=== PATIENT | female | born 1995 | race Caucasian/White ===

== ENCOUNTER 2019-11-22 09:15 | Inpatient (IN) | payer OTHER ==
[2019-11-22 10:35] VITALS: BMI 28.0
[2019-11-22] MEDS ORDERED: AMPICILLIN SODIUM 2 GM VIAL ONE (10:43)
[2019-11-22] MEDS ORDERED: OXYTOCIN 30 UNITS in 0.9% NS 30 UNIT/500 ML INFUS.BAG IVPB ONE (10:44)
[2019-11-22 10:53] LABS: BASO % 0.5 % (0-2.0); EOS % 0.8 % (0-4.5); HEMATOCRIT 39.2 % (32.4-45.2); HEMOGLOBIN 13.6 GM/dL (10.7-15.3); LYMPH % 21.1 % (8-40); MCH 32.4 pg (25.7-33.7); MCHC 34.6 g/dl (32.0-36.0); MEAN CELL VOLUME 93.8 fl (80-96); MEAN PLT VOLUME 9.1 fl (7.5-11.1); NEUT % 68.6 % (42.8-82.8); PLATELET COUNT 188 K/MM3 (134-434); RBC 4.18 M/mm3 (3.60-5.2); RDW 14.3 % (11.6-15.6); WHITE BLOOD COUNT 8.3 K/mm3 (4.0-10.0)
[2019-11-22 11:00] LABS: INR 0.97 (0.83-1.09); PROTHROMBIN TIME (PATIENT) 11.4 SEC (9.7-13.0)
[2019-11-22 11:03] LABS: ACTIVATED PTT 27.2 SECONDS (25.2-36.5)
[2019-11-22 11:18] LABS: BLOOD UREA NITROGEN 9.4 mg/dL (7-18); CALCIUM 9.4 mg/dL (8.5-10.1); CREATININE 0.4 mg/dL (0.55-1.3); POTASSIUM 3.9 mmol/L (3.5-5.1)
[2019-11-22] MEDS: ELECTROLYTE-148 SOLN 1,000 ML IV SCH (12:00)
[2019-11-22] MEDS ORDERED: AMPICILLIN - 2 GM in SODIUM CHLORIDE 100 ML IVPB ONE (12:00)
--- NOTE | 2019-11-22 12:55 | HP ---
Past Medical History - Primary Care Physician PCP:: Levon Rodriguez - Admission Chief Complaint: Lower abdominal pain History of Present Illness: 24 yo , RIKY 11/22/19, EGA 40 weeks 3 days, presented with the above, No bleeding or leaking fluid per vagina. History Source: Patient Limitations to Obtaining History: No Limitations - Past Medical History Pulmonary: Yes: Asthma ...: 2 ...Para: 1 ...Term: 1 ...LMP: 01/15/19 ... Weeks Gestation by Dates: 40 ...EDC by Dates: 11/22/19 ...EDC by Sono: 11/26/19 Endocrine: Yes: Diabetes Mellitus - Past Surgical History Hx Myomectomy: No Hx Transabdominal Cerclage: No - Smoking History Smoking history: Never smoked - Alcohol/Substance Use Hx Alcohol Use: No - Social History Do you think of yourself as: Straight/Heterosexual History of Recent Travel: No Home Medications - Allergies Allergies/Adverse Reactions: Allergies Allergy/AdvReac Type Severity Reaction Status Date / Time No Known Allergies Allergy Verified 11/22/19 10:17 - Home Medications Home Medications: Ambulatory Orders Insulin 20 units SCJ DAILY 11/22/19 Insulin 44 units SCJ DAILY 11/22/19 Vitamins (Sjr) - 1 tab PO DAILY 11/22/19 Family Medical History Family History: Denies Review of Systems - Review of Systems Constitutional: reports: No Symptoms Eyes: reports: No Symptoms HENT: reports: No Symptoms Neck: reports: No Symptoms Cardiovascular: reports: No Symptoms Respiratory: reports: No Symptoms Gastrointestinal: reports: No Symptoms Genitourinary: reports: No Symptoms Breasts: reports: No Symptoms Reported Musculoskeletal: reports: No Symptoms Integumentary: reports: No Symptoms Neurological: reports: No Symptoms Endocrine: reports: No Symptoms Hematology/Lymphatic: reports: No Symptoms Psychiatric: reports: No Symptoms Physical Exam - Maternity Vital Signs: Vital Signs Temperature 98.6 F 11/22/19 11:00 Pulse Rate 78 11/22/19 12:00 Respiratory Rate 11/22/19 12:00 Blood Pressure 120/71 11/22/19 12:00 O2 Sat by Pulse Oximetry (%) Constitutional: Yes: Well Nourished Eyes: Yes: WNL HENT: Yes: WNL Neck: Yes: WNL Cardiovascular: Yes: WNL - Abdominal Exam/OB Fundal Height: 39 Number of Fetuses: Single Presentation: Vertex Contractions: Yes Regularity: Regular Intensity: Mild/Mod Monitor Mode: External Heart Rate (range): 140 Heart Rate Location: [facility] Category: I Accelerations: Uniform Decelerations: None - Vaginal Exam/OB Vaginal Bleeding: No Speculum Exam: No Dilatation (cm): 5 Effacement (%): 100 Amniotic Membrane Status: Intact Presentation: Vertex/Position Station: -1 - Physical Exam Musculoskeletal: Yes: WNL Extremities: Yes: WNL Edema: No Integumentary: Yes: WNL ...Motor Strength: WNL Psychiatric: Yes: WNL - Labs Lab Results: CBC, BMP 11/22/19 10:32 11/22/19 10:32 Hemorrhage Risk Assessment - Risk Factors Medium Risk Factors: Yes: None High Risk Factors: Yes: None Risk Score: 1 Risk Level: Medium Risk Problem List - Problems (1) 40 weeks gestation of Code(s): Z3A.40 - 40 WEEKS GESTATION OF (2) Gestational diabetes mellitus (GDM) Code(s): O24.419 - GESTATIONAL DIABETES MELLITUS IN , UNSP CONTROL Qualifiers: Gestational diabetes mellitus control: insulin-controlled Assessment/Plan Full term gestation with GDMA2 in labor Admit L and D for management.
[2019-11-22] MEDS ORDERED: AMPICILLIN SODIUM 1 GM VIAL ONE (14:09)
--- NOTE | 2019-11-22 14:10 | PN ---
Progress Note (short form) - Note Progress Note: Patient with no complaints VSS, afebrile EFM - Baseline 140/min, moderate variability, acceleration, no deceleration Tocos - q7 Pelvic - 5cm/100%/-1/vertex, AROM performed, clear fluid Plan - Full term gestation in labor Anticipate vaginal delivery Problem List - Problems (1) 40 weeks gestation of Code(s): Z3A.40 - 40 WEEKS GESTATION OF (2) Gestational diabetes mellitus (GDM) Code(s): O24.419 - GESTATIONAL DIABETES MELLITUS IN , UNSP CONTROL Qualifiers: Gestational diabetes mellitus control: insulin-controlled
[2019-11-22] MEDS ORDERED: OXYTOCIN 30 UNITS in 0.9% NS 30 UNIT/500 ML INFUS.BAG IVPB SCH (14:15)
[2019-11-22] MEDS ORDERED: AMPICILLIN - 1 GM in SODIUM CHLORIDE 100 ML IVPB SCH (15:00)
[2019-11-22] MEDS ORDERED: OXYTOCIN 20 UNITS in 0.9% NS 20 UNIT/1,000 ML INFUS.BAG IV ONE ×2 (15:19→16:38)
[2019-11-22] MEDS ORDERED: LIDOCAINE HCL 1% PRESERVATIVE FREE - 30ML VIAL ONE (15:23)
[2019-11-22] MEDS ORDERED: IBUPROFEN 600 MG TABLET (FP) PO ONE (15:37)
[2019-11-22] MEDS ORDERED: ACETAMINOPHEN 325 MG TABLET (FP) ONE (15:37)
[2019-11-22] MEDS: IBUPROFEN 600 MG TABLET (FP) PO PRN ×2 (15:40→21:53)
[2019-11-22] MEDS: ACETAMINOPHEN 325 MG TABLET (FP) PO PRN ×2 (15:40→21:52)
[2019-11-22 15:59] LABS: CORD BASE EXCESS -2.8 mmol/L (0-2); CORD HCO3 20.7 mmHg (20-29); CORD PCO2 32.8 mmHg (30-78); CORD pH 7.417 (7.14-7.44)
[2019-11-22] MEDS ORDERED: BENZOCAINE 20% 57 GM BOTTLE TP PRN (16:01)
[2019-11-22] MEDS ORDERED: WITCH HAZEL 50% (TUCKS) 40 PAD/JAR PAD TP PRN (16:01)
[2019-11-22] MEDS ORDERED: BENZOCAINE 28 GM HEMORRHOIDAL OINTMENT TP PRN (16:01)
[2019-11-22] MEDS ORDERED: METHYLERGONOVINE MALEATE 0.2 MG/1 ML AMP IM PRN (16:01)
--- NOTE | 2019-11-22 16:01 | PN ---
Progress Note (short form) - Note Progress Note: Patient with no complaints VSS, afebrile EFM - Baseline 140/min, moderate variability, acceleration, no deceleration Tocos - q4 Pelvic - Anterior lip/100%/0 Plan - Anticipate vaginal delivery Problem List - Problems (1) 40 weeks gestation of Code(s): Z3A.40 - 40 WEEKS GESTATION OF (2) Gestational diabetes mellitus (GDM) Code(s): O24.419 - GESTATIONAL DIABETES MELLITUS IN , UNSP CONTROL Qualifiers: Gestational diabetes mellitus control: insulin-controlled
--- NOTE | 2019-11-22 16:20 | PN ---
Delivery - Delivery Vaginal Delivery: No Problems, Spontaneous Type of Anesthesia: Local (Laceration sutured with 2-0 vicyl under local anesthesia.) Episiotomy/Laceration: Midline, 1st degree EBL (cc): 300 Delivery, Single - Stages of Labor Date 1st Stage Initiatied: 11/22/19 Date 2nd Stage Initiated: 11/22/19 Date of Delivery: 11/22/19 Date Placenta Delivered: 11/22/19 Placenta: Yes: Spontaneous, Normal Configuration - Condition of Infant Gender: Female Weight: 4.139 kg Position: Left, OA - 1 Minute Total Score: 9 5 Minutes Total Score: 9 - [place] Feeding Plan Initial Plan: Exclusive throughout hospitalization Benefits of Exclusively reinforced: Yes
[2019-11-22] MEDS: OXYTOCIN 20 UNITS in 0.9% NS 20 UNIT/1,000 ML INFUS.BAG IV SCH (16:43)
[2019-11-22] MEDS: DOCUSATE SODIUM 100 MG CAPSULE (FP) PO SCH (17:43)
[2019-11-23] MEDS: IBUPROFEN 600 MG TABLET (FP) PO PRN ×2 (08:14→15:38)
[2019-11-23 08:27] LABS: BASO % 0.3 % (0-2.0); EOS % 0.9 % (0-4.5); HEMATOCRIT 37.9 % (32.4-45.2); HEMOGLOBIN 12.7 GM/dL (10.7-15.3); MCH 31.5 pg (25.7-33.7); MCHC 33.4 g/dl (32.0-36.0); MEAN CELL VOLUME 94.2 fl (80-96); MONO % 6.9 % (3.8-10.2); NEUT % 70.9 % (42.8-82.8); PLATELET COUNT 179 K/MM3 (134-434); RBC 4.03 M/mm3 (3.60-5.2); RDW 14.2 % (11.6-15.6); WHITE BLOOD COUNT 10.9 K/mm3 (4.0-10.0)
[2019-11-23] MEDS: DOCUSATE SODIUM 100 MG CAPSULE (FP) PO SCH (10:18)
[2019-11-23] MEDS: PRENATAL VITAMINS W/ FOLIC ACID TABLET (FP) PO SCH (10:18)
--- NOTE | 2019-11-23 10:23 | PN ---
Progress Note (short form) - Note Progress Note: PPD#1: patient comfortable; no complains abdomen soft; firm, non tender lochia normal I/P: doing well; s/p home in am
[2019-11-23] MEDS: ACETAMINOPHEN 325 MG TABLET (FP) PO PRN (15:38)
[2019-11-23] MEDS: ELECTROLYTE-148 SOLN 1,000 ML IV SCH (18:06)
[2019-11-23] MEDS: OXYTOCIN 20 UNITS in 0.9% NS 20 UNIT/1,000 ML INFUS.BAG IV SCH (18:07)
[2019-11-23] MEDS ORDERED: SENNOSIDES/DOCUSATE COMBO (SENNA PLUS) TABLET (UD) PO PRN (22:00)
[2019-11-24] MEDS: ACETAMINOPHEN 325 MG TABLET (FP) PO PRN (02:01)
[2019-11-24] MEDS: IBUPROFEN 600 MG TABLET (FP) PO PRN (02:02)
[2019-11-24] MEDS: DOCUSATE SODIUM 100 MG CAPSULE (FP) PO SCH (10:35)
[2019-11-24] MEDS: PRENATAL VITAMINS W/ FOLIC ACID TABLET (FP) PO SCH (10:35)
[2019-11-24 12:01] VITALS: BP 129/79; PULSE 61; TEMP 98.2
--- NOTE | 2019-11-24 13:16 | DS ---
Physical Exam-SECURITY MANAGEMENT SPECIALIST Vital Signs: Vital Signs Temperature 98.2 F 11/24/19 09:00 Pulse Rate 61 11/24/19 09:00 Respiratory Rate 18 11/24/19 09:00 Blood Pressure 129/79 11/24/19 09:00 O2 Sat by Pulse Oximetry (%) 98 11/23/19 09:00 Constitutional: Yes: Well Nourished, No Distress Eyes: Yes: WNL HENT: Yes: WNL Neck: Yes: WNL Cardiovascular: Yes: WNL Respiratory: Yes: WNL Gastrointestinal: Yes: WNL ....Post : Yes: Uterus firm, Uterus non-tender Breast(s): Yes: WNL Musculoskeletal: Yes: WNL Extremities: Yes: WNL Edema: No Integumentary: Yes: WNL Neurological: Yes: WNL ...Motor Strength: WNL Psychiatric: Yes: WNL Labs: CBC, BMP 11/23/19 07:28 11/22/19 10:32 Delivery - Delivery Vaginal Delivery: No Problems, Spontaneous Type of Anesthesia: Local Episiotomy/Laceration: Midline, 1st degree EBL (cc): 300 Delivery, Single - Stages of Labor Date 1st Stage Initiatied: 11/22/19 Time 1st Stage Initiated: 05:30 Date 2nd Stage Initiated: 11/22/19 Time 2nd Stage Initiated: 14:30 Date of Delivery: 11/22/19 Time of Delivery: 15:13 Time Placenta Delivered: 15:20 Placenta: Yes: Spontaneous, Normal Configuration - Condition of Manufacturing Engineer Chief/Tribal Council Member Present: No Gender: Female Weight: 4.139 kg Position: Left, OA Total Hours ROM (Hrs/Mins): 1hr 13min. - 1 Minute Total Score: 9 5 Minutes Total Score: 9 - Feeding Plan Initial Plan: Exclusive throughout hospitalization Benefits of Exclusively reinforced: Yes Discharge Summary Problems reviewed: Yes Reason For Visit: INDUCTION OF LABOR Current Active Problems 40 weeks gestation of (Acute) Gestational diabetes mellitus (GDM) (Acute) Hospital Course: good Plan of Treatment: Ambulate Breast feeding F/U in the clinic 4-6 weeks/prn Condition: Good - Instructions Diet, Activity, Other Instructions: Regular diet Disposition: HOME - Home Medications Comprehensive Discharge Medication List: Ambulatory Orders Insulin 20 units SCJ DAILY 11/22/19 Insulin 44 units SCJ DAILY 11/22/19 Vitamins (Sjr) - 1 tab PO DAILY 11/22/19
--- NOTE | 2019-11-30 17:48 | PATH ---
Surgical Pathology Report Patient Name: KRISH HARLEY Med. Rec. #: [id number] /Age/Gender: 1995 (Age: 24) / F Account: [id number] Location: [facility] OBS/ROUND UP RING HAND Taken: 11/22/2019 Received: 11/23/2019 Reported: 11/30/2019 Physicians: Berto Toth Specimen(s) Received PLACENTA Clinical History , 02/21, Gestational diabetes Final Diagnosis PLACENTA: THIRD TRIMESTER PLACENTA WITH FOCAL CALCIFICATION AND SUBCHORIONIC FIBRIN POSITION. TRIVASCULAR CORD. MEMBRANES WITH NO DIAGNOSTIC ABNORMALITIES. Electronically Signed Lesli Kong M.D. Gross Description The specimen is received fresh labeled placenta and is a 609 gram, 19 x19 x 2.5cm. placenta with attached membranes and umbilical cord. The attached membranes are glistening, translucent, and insert marginally. The umbilical cord measures 18 cm. in length and averages 1.5 cm. in diameter. The cord inserts eccentrically 3 centimeter to the nearest margin. No true knots or strictures are identified. Cut surface of the umbilical cord reveals 3 vessels. Sectioning reveals red-brown, spongy parenchyma. No lesions are identified. Director Of Player Personnel sections are submitted in three cassettes as follows: 1- membrane rolls and umbilical cord; 2-3- full thickness sections of placenta KWS/11/24/2019 sulki11/24/2019
== END 2019-11-24 14:35 | disposition home or self-care (01) | DRG 560 ==
LOC: JLDR 09:15 → J3W 17:30
PROVIDERS: ADMIT Obstetrics & Gynecology; ATTEND Obstetrics & Gynecology
PROC: 10E0XZZ Delivery of Products of Conception, External Approach (ICD-10-PCS; principal; 2019-11-22)
PROC: 0W8NXZZ Division of Female Perineum, External Approach (ICD-10-PCS; 2019-11-22)
PROC: 0HQ9XZZ Repair Perineum Skin, External Approach (ICD-10-PCS; 2019-11-22)
PROC: 10907ZC Drainage of Amniotic Fluid, Therapeutic from Products of Conception, Via Natural or Artificial Opening (ICD-10-PCS; 2019-11-22)
DX: O48.0 Post-term pregnancy (principal); O24.424 Gestational diabetes mellitus in childbirth, insulin controlled; O70.0 First degree perineal laceration during delivery; Z3A.40 40 weeks gestation of pregnancy; Z37.0 Single live birth; Z87.09 Personal history of other diseases of the respiratory system
CPT/HCPCS: 36415; 36600; 59409; 80048; 82803; 82962; 85025; 85610; 85730; 86780; 86850; 86900; 86901; 87389; 88307-TC